=== PATIENT | female | born 2000 | race Caucasian/White ===

== ENCOUNTER 2025-05-10 21:20 | Emergency (ER) | payer OTHER ==
[2025-05-10 22:06] LABS: Glucose, Urine (Dipstick) Normal (Negative); Leukocyte 500 (Negative); Protein, Urine (Dipstick) 30 mg/dl (Neg-Trace); Specific Gravity, Urine 1.015 (1.005-1.030)
[2025-05-10 22:17] LABS: Pregnancy Test - Urine (BHCG) Negative (Negative); Pregu Control Background? CLEAR/WHITE (CLR/WHITE); Pregu Control Bar Appear? YES (CONTROL BAR)
[2025-05-10 22:20] LABS: Bacteria/HPF 2+ HPF (None Seen); CAUTI Indications for Culture Dysuria,urgency,freq; WBC/HPF Greater than 50 HPF (0-3)
[2025-05-10 22:21] LABS: Urine Culture Reflex Yes Yes
[2025-05-10] MEDS ORDERED: Cephalexin 250 MG CAP ONE (22:29)
== END 2025-05-10 22:51 | disposition home or self-care (01) ==
LOC: CSHERS 21:20
DX: N39.0 Urinary tract infection, site not specified (principal)
CPT/HCPCS: 81001; 81025; 87077; 87086; 99283